=== PATIENT | female | born 1960 | race Hispanic/Latino ===

== ENCOUNTER → 2018-09-21 | Outpatient (CLI) | payer MEDICARE ==
[~2018-09-21] MED LIST: REGADENOSON 0.4 MG/5 ML SYR IV ONE
== END ==
LOC: NM 09:22
PROVIDERS: ATTEND Internal Medicine Cardiovascular Disease
DX: R07.2 Precordial pain (principal)
CPT/HCPCS: 78452; 93017; A9502; J2785

== ENCOUNTER 2019-09-27 18:35 | Inpatient (IN) | payer MEDICARE ==
[~2019-09-27] VITALS: Ht 152.4 cm; Wt 130.4 kg
[2019-09-27] MEDS: FAMOTIDINE 20 MG/2 ML VIAL IV SCH (03:00)
--- OUTSIDE RECORDS SUMMARY | 2019-09-27 18:38 | XMS REPORT | Clinical Summary ---
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 Active Miscellaneous Medical CPAP machine 1 Each 0 Supply MiscIndications: at 14 cmH2O. 5 KUN (obstructive sleep Respironics apnea) ComfortGel small-sized full face mask for sleep. Active blood glucose Use as 1 Kit 0 meterIndications: Type 2 directed.. 6 diabetes mellitus with other specified complication Active clotrimazole (LOTRIMIN) 1 Apply 1-2 30 mL 3 % external drops to 7 solutionIndications: affected Fungal toenail infection nails 2 times a day. Use a nail file to keep nails thin. Treatment may take up to 1 year. Active tiotropium (SPIRIVA WITH Inhale 1 90 capsule 3 0 HANDIHALER) 18 mcg capsule by 7 inhalation mouth daily. capsuleIndications: Chronic obstructive pulmonary disease, unspecified COPD type, Mild persistent asthma without complication Active albuterol 90 Inhale 2 20.1 g 3 mcg/actuation Puffs by 7 inhalerIndications: mouth 4 times Chronic obstructive daily as pulmonary disease, needed for unspecified COPD type, Wheezing. Mild persistent asthma without complication Active montelukast (SINGULAIR) Take 1 tablet 90 tablet 3 10 mg tabletIndications: by mouth at 7 Mild persistent asthma bedtime without complication nightly. Active blood glucose test 2 times 50 Each 3 11/29/2 01 stripsIndications: Type 2 weekly to 7 diabetes mellitus with test blood diabetic polyneuropathy, sugar. without long-term current use of insulin Active lancets 28 2 times 100 Each 1 gaugeIndications: Type 2 weekly. 7 diabetes mellitus with diabetic polyneuropathy, without long-term current use of insulin Active albuterol (PROVENTIL) 2.5 Inhale 3 mL 300 mL 4 mg /3 mL (0.083 %) by mouth 7 nebulizer every 4 hours solutionIndications: as needed for Chronic obstructive Wheezing or pulmonary disease, Shortness of unspecified COPD type Breath. Active Miscellaneous Medical Patient 1 Each 0 Supply MiscIndications: needing a 7 COPD exacerbation, Mild nebulizer due persistent asthma without to Severe complication Asthma with COPD. Active ergocalciferol (VITAMIN Take 1 12 capsule 0 D2) 50,000 unit capsule by 7 capsuleIndications: mouth weekly Vitamin D deficiency For 3 months and then buy vitamin D3: 2000 units and take 1 tablet/day. Active levothyroxine (SYNTHROID) Take 1 tablet 90 tablet 1 25 mcg tabletIndications: by mouth 7 Hypothyroidism, daily. unspecified type Active atorvastatin (LIPITOR) 40 Take 1 tablet 90 tablet 1 mg tabletIndications: by mouth at 8 Hyperlipidemia, bedtime unspecified nightly. hyperlipidemia type Active dexlansoprazole Take 1 90 capsule 0 (DEXILANT) 30 mg delayed capsule by 8 release mouth daily. capsuleIndications: Gastroesophageal reflux disease, esophagitis presence not specified Active loratadine (CLARITIN) 10 Take 1 tablet 90 tablet 1 mg tabletIndications: by mouth 8 Chronic nonseasonal daily. allergic rhinitis due to other allergen, Rhinosinusitis Active ciclesonide (ZETONNA) 37 Use 1 [place] 6.1 g 4 0 mcg/actuation nasal HFA in each 8 inhalerIndications: nostril Rhinosinusitis daily. Active benzonatate (TESSALON Take 2 90 capsule 0 04/26 PERLES) 100 mg capsules by 8 capsuleIndications: Cough mouth 3 times daily as needed for Cough. Active ketoconazole (NIZORAL) 2 Apply to 30 g 3 0 % topical affected area 8 creamIndications: Tinea 2 times daily pedis of both feet Label in Lithuanian. Active FLUoxetine (PROZAC) 20 mg Take 1 90 capsule 0 capsuleIndications: capsule by 8 Moderate episode of mouth daily. recurrent major depressive disorder Active fluticasone-salmeterol Inhale 1 Puff 180 Each 3 0 (ADVAIR DISKUS) 500-50 by mouth 2 8 mcg/dose diskus times daily. inhalerIndications: Severe persistent extrinsic asthma with status asthmaticus Active Nebulizer & Compressor 1 Device by 1 Device 0 For Neb DeviIndications: Misc.(Non-Yg 8 Moderate persistent g; Combo asthmatic bronchitis with Route) route acute exacerbation 4 times daily. Active albuterol (PROVENTIL) 2.5 Inhale 3 mL 300 mL 3 mg /3 mL (0.083 %) by mouth 8 nebulizer every 4 hours solutionIndications: as needed for Moderate persistent Wheezing or asthmatic bronchitis with Shortness of acute exacerbation Breath. Active guaiFENesin SR (MUCINEX) Take 1 tablet 30 tablet 1 600 mg extended release by mouth 2 8 tabletIndications: Cough times daily. Active gabapentin (NEURONTIN) Take 1 90 capsule 1 300 mg capsule by 8 capsuleIndications: mouth at Diabetic polyneuropathy bedtime associated with type 2 nightly. diabetes mellitus Active Miscellaneous Medical Permanent 1 Each 0 09/24 Supply MiscIndications: disabled 8 COPD exacerbation, parking Moderate persistent placard. asthma without complication Active losartan (COZAAR) 50 mg Take 1 tablet 90 tablet 0 tabletIndications: by mouth 8 Essential hypertension daily. with goal blood pressure less than 140/90 Active Miscellaneous Medical CPAP Machine, 1 Each 0 Supply MiscIndications: face Mask and 8 KUN (obstructive sleep supplies for apnea) severe KUN. Active metFORMIN (GLUCOPHAGE) Take 1 tablet 90 tablet 0 0 500 mg tabletIndications: by mouth 8 Type 2 diabetes mellitus daily (with with complication, breakfast). without long-term current use of insulin Active ammonium lactate (AL12) Apply to 222 mL 3 12 % lotionIndications: affected area 8 Xerosis cutis 2 times daily. Active Miscellaneous Medical CPAP machine 1 Each 0 Supply MiscIndications: with 8 Moderate persistent treatment asthma without settings at complication 14 cm H2O with Respironics ComfortGel small sized full face mask for sleep. Active Miscellaneous Medical Nebulizer 1 Each 0 11/23 Supply MiscIndications: machine due 8 COPD exacerbation, KUN to severe (obstructive sleep apnea) persistent Asthma with COPD. Active Problems Problem Noted Date Edentulism, complete, class I edentulism 10/11/2017 Edentulism 08/29/2017 Vitamin D deficiency 04/07/2017 Depression 04/04/2017 Right shoulder pain 03/04/2017 Diabetes mellitus without ophthalmic manifestations 06/09/2016 COPD exacerbation 12/22/2015 Hypoxia 12/22/2015 Essential hypertension with goal blood pressure less than 140/90 12/18/2015 UKN (obstructive sleep apnea) 01/22/2015 Asthma 06/27/2013 Morbid obesity 03/30/2013 Hemangioma of face 09/12/2012 DMII (diabetes mellitus, type 2) Mixed hyperlipidemia Hypothyroidism Blood in urine Anemia ESR raised Shoulder pain Encounters Care Team Description Date Type Specialty Mickey Lewis Jr., DMD Edentulism, complete, class I edentulism (Primary Dx) 11/07/2018 Office Visit Dentistry after 09/26/2018 Immunizations Name Administration Dates Next Due Albuterol 0.083% (3ml) 09/27/2013, 06/27/2013 CEFTRIAXONE 1 GRAM 06/03/2016 SOLUTION FOR INJECTION Influenza Vaccine 06/03/2016, 03/04/2015, Influenza Vaccine, 04/14/2017, 04/04/2017 (Def erred: Patient Refused) Seasonal, Injectable Ipratropium 0.02t (2.5ml) 06/27/2013 LIDOCAINE (PF) 10 MG/ML 06/03/2016 (1 %) INJECTION PPV 23 Pneumococcal 04/16/2013 Polysaccaride Pneumococcal 13-valent 2016 conj 0.5 mL injection Tdap Tetanus, diphtheria, 09/12/2012 acellular pertussis Vaccine Triamcinolone 40mg/ml Inj 06/27/2013 Family History Medical History Relation Name Comments Arthritis Mother Cancer Sister Hypertension Sister Stroke Sister Relation Name Status Comments Brother Alive Brother Alive Brother Alive Brother Alive Brother Alive Brother Alive Daughter Alive Father Maternal Grandfather Maternal Grandmother Mother Paternal Grandfather Paternal Grandmother Sister Alive Sister Alive Sister Alive Sister Alive Sister Alive Sister Sister Sister Social History Date Tobacco Use Types Packs/Day Years Used Quit: 04/14/2012 Former Smoker Cigarettes 0.5 20 Smokeless Tobacco: Former User Tobacco Cessation: Counseling Given: Yes Drinks/Week oz/Week Comments Alcohol Use 0 Standard drinks or equivalent 0.0 Occasionally Yes Food Insecurity Answer Date Recorded Within the past 12 months, you worried that your Never jamee e 11/29/2016 food would run out before you got money to buy more. Within the past 12 months, the food you bought Never true 11/29/2016 just didn't last and you didn't have mo brendan to get more. Sex Assigned at Date Recorded Not on file Industry Job Start Date Occupation Not on file Not on file Not on file Travel End Travel History Travel Start No recent travel history available. Last Filed Vital Signs Reading Time Taken Comments Vital Sign 133/70 11/07/2018 10:36 AM CDT Blood Pressure 64 11/07/2018 10:36 AM CDT Pulse - - Temperature - - Respiratory Rate - - Oxygen Saturation - - Inhaled Oxygen Concentration - - Weight - - Height - - Body Mass Index Plan of Treatment Health Maintenance Due Date Last Done Comments Colorectal Cancer Scrn 11/30/2017 11/30/2016, 04/2015 Annual (FIT/FOBT) Age 50 to 75 Breast Cancer Scrn 01/03/2018 01/03/2017, 016, 01/03/2015, (Yearly) Additional history exists DM Foot Exam (Yearly) 01/21/2018 01/21/2017, 08/0 10/2016, 09/30/2015 DM HGBA1C (Yearly) 04/06/2018 04/06/2017, 017, 05/04/2016, Additional history exists DM Retinal Exam (Yearly) 09/06/2018 09/06/2017, 0 06/09/2016, 05/04/2016, Additional history exists Cervical Cancer Scrn (3 04/27/2020 04/27/2017, (Previously Yrs) completed - External), 04/2012 Goals Goal Patient Associated Recent Progress Patient-Stat Aut hor Goal Type Problems ed? LOWER BLOOD GLUCOSE Lifestyle No Blu Arias MD Results Not on fileafter 09/26/2018 Insurance Type Payer Benefit Subscriber ID Effective Phone Address Plan / Dates Group [facility] SELF-PAY SELF-PAY xxxxxxxxx 2018- [phone] [id number] [place] [address] Advance Directives Date Inactivated Comments Code Status Date Activated 12/24/2015 12:13 PM Full Code 12/23/2015 12:02 AM
--- OUTSIDE RECORDS SUMMARY | 2019-09-27 18:38 | XMS REPORT | Continuity of Care Document ---
Author Author [facility] t Organization [facility] Address [address] [place] [address] Phone Unavailable Care Team Providers Care Maintenance Associate Name Role Phone Malvin Best MD Jeffery PCP Debbie FULLER W Mickey Attphys John VALENTIN Attphys Unavailable Payers Payer Name Policy Type Policy Number Effective Date Expiration Date S [facility] [id number] UNSCREENEDxxxxxxxx [id number] [place] [address] xxxxxxxxx 2018 00:00:00 [facility] Problems Condition Name Condition Details Condition Category Status Onset Date Resolution Date Last Treatment Date Treating Clinician Comments Source Edentulism, complete, class I edentulism Edentulism, c omplete, class I edentulism Disease Active 2017-10-11 00:00:00 [facility] Edentulism Edentulism Disease Active 2017-08-29 00:00:00 [facility] Vitamin D deficiency Vitamin D deficiency Disease Active 00:00:00 [facility] Depression Depression Disease Active 2017-04-04 00:00:00 [facility] Diabetes mellitus without ophthalmic manifestations Di abetes mellitus without ophthalmic manifestations Disease Active 2016-06-09 00:00:00 [facility] COPD exacerbation COPD exacerbation Disease Active 2015-12-22 00:00:00 [facility] Hypoxia Hypoxia Disease Active 2015-12-22 00:00:00 [facility] Essential hypertension with goal blood pressure less t breaux 140/90 Essential hypertension with goal blood pressure less than 140/90 Disease Activ e 2015-12-18 00:00:00 [facility] KUN (obstructive sleep apnea) KUN (obstructive sleep apnea) Disease Active 2015-01-22 00:00:00 [facility] Asthma Asthma Disease Active 2013-06-27 00:00:00 [facility] Morbid obesity Morbid obesity Disease Active 2013-03-30 00:00:00 [facility] Hemangioma of face Hemangioma of face Disease Active 2012-09-12 00:00:0 0 [facility] DMII (diabetes mellitus, type 2) DMII (diabetes mellitus, type 2 ) Disease Active [facility] Mixed hyperlipidemia Mixed hyperlipidemia Disease Active [facility] Hypothyroidism Hypothyroidism Disease Active [facility] Blood in urine Blood in urine Disease Active [facility] Anemia Anemia Disease Active [facility] alth ESR raised ESR raised Disease Active [facility] Shoulder pain Shoulder pain Disease Active [facility] Allergies, Adverse Reactions, Alerts Allergy Name Allergy Type Status Severity Reaction(s) Onset Date Inacti ve Date Treating Clinician Comments Source Penicillins DA Active U 2013-10-21 00:00:00 [facility] Penicillins Propensity to adverse reactions to drug Active Itching 2012-09-12 00:00:00 [facility] Family History Family Member Diagnosis Comments Start Date Stop Date Source Natural mother Arthritis [facility] Natural sister Cancer [facility] Natural sister Hypertension [facility] Natural sister Stroke [facility] Social History Social Habit Start Date Stop Date Quantity Comments Source Sex Assigned At [facility] Cigarettes smoked current (pack per day) - Reported 00:00:00 2018-11-07 00:00:00 [facility] Cigarette pack-years 2018-11-07 00:00:00 2018-11-07 00:00:00 [facility] Alcohol intake 2018-11-07 00:00:00 2018-11-07 00:00:00 [facility] History SDOH Food Worry 2016-11-29 00:00:00 2016-11-29 00:00:00 1 [facility] History SDOH Food Scarcity 2016-11-29 00:00:00 2016-11-29 00:00:00 1 [facility] Alcohol Comment 2012-09-12 00:00:00 2012-09-12 00:00:00 Occasionally [facility] History of tobacco use 2012-04-14 00:00:00 Current smoker [facility] Smoking Status Start Date Stop Date Source Former smoker 2018-11-07 00:00:00 2018-11-07 00:00:00 [facility] ealt Medications Ordered Medication Name Filled Medication Name Start Date Stop Da te Current Medication? Ordering Clinician Indication Dosage Frequency Signature (SIG) Comments Components Source [facility] 2017-12-02 00:00:00 Yes Moderate persistent asthma without complication C PAP machine with treatment settings at 14 cm H2O with Respironics ComfortGel small sized full face mask for sleep. [facility] 2017-12-02 00:00:00 Yes KUN (obstructive sleep apnea) Nebulizer machine due to severe persisten t Asthma with COPD. [facility] ammonium lactate (AL12) 12 % lotion 2017-11-30 00:00:00 Yes Xerosis cutis Q.5D Apply to affected area 2 times daily. [facility] metFORMIN (GLUCOPHAGE) 500 mg tablet 2017-11-23 00:00:00 Yes Type 2 diabetes mellitus with complication, without long-term current use of insulin 500mg QD Take 1 tablet by mouth daily (with breakfast). [facility] 2017-11-08 00:00:00 Yes KUN (obstructive sleep apnea) CPAP Machine, face Mask and supplies for damian re KUN. [facility] losartan (COZAAR) 50 mg tablet 2017-11-02 00:00:00 Yes Essential hypertension with goal blood pressure less than 140/90 50mg QD Take 1 tablet by mouth daily. [facility] 2017-10-14 00:00:00 Yes Moderate persistent asthma without complication Permanent disabled parking placard. [facility] gabapentin (NEURONTIN) 300 mg capsule 2017-09-27 00:00:00 Yes Diabetic polyneuropathy associated with type 2 diabetes mellitus 300mg Take 1 capsule by mouth at bedtime nightly. [facility] Nebulizer & Compressor For Neb Sofia 2017-08-25 00:00:00 Yes Moderate persistent asthmatic bronchitis with acute exacerbation 1{device} [address] [facility].(Non-Drug; Combo Route) route 4 times daily. [facility] albuterol (PROVENTIL) 2.5 mg /3 mL (0.083 %) nebulizer solut ion 2017-08-25 00:00:00 Yes Moderate persist ent asthmatic bronchitis with acute exacerbation 2.5mg Inhale 3 mL by mouth every 4 hours as needed for Wheezing or Shortness of Breath. [facility] guaiFENesin SR (MUCINEX) 600 mg extended release tablet 2017-08-25 00:00:00 Yes Cough 600mg Q.5D Take 1 tablet by mouth 2 times daily. [facility] fluticasone-salmeterol (ADVAIR DISKUS) 500-50 mcg/dose disku s inhaler 2017-08-15 00:00:00 Yes Severe persi stent extrinsic asthma with status asthmaticus 1{puff} Q.5D Inhale 1 Puff by mouth 2 times daily. [facility] FLUoxetine (PROZAC) 20 mg capsule 2017-08-04 00:00:00 Yes Moderate episode of recurrent major depressive disorder 20mg QD Take 1 capsule by mouth daily. [facility] ketoconazole (NIZORAL) 2 % topical cream 2017-08-02 00:00:00 Yes Tinea pedis of both feet Q.5D Apply to affected ar ea 2 times daily Label in Albanian. [facility] loratadine (CLARITIN) 10 mg tablet 2017-05-19 00:00:00 Y es Rhinosinusitis 10mg QD Take 1 tablet by mouth daily. [facility] ciclesonide (ZETONNA) 37 mcg/actuation nasal HFA inhaler 2017-05-19 00:00:00 Yes Rhinosinusitis 1{spray} QD Use 1 [place] in each nost ril daily. [facility] benzonatate (TESSALON PERLES) 100 mg capsule 2017-05-19 00:0 0:00 Yes Cough 200mg Take 2 capsules by mouth 3 times daily as neede d for Cough. [facility] atorvastatin (LIPITOR) 40 mg tablet 2017-04-28 00:00:00 Yes Hyperlipidemia, unspecified hyperlipidemia type 40mg Take 1 tablet by mouth at bedtime nightly. [facility] dexlansoprazole (DEXILANT) 30 mg delayed release capsule 2017-04-28 00:00:00 Yes Gastroesophageal reflux disease, esophagi tis presence not specified 30mg QD Take 1 capsule by mouth daily. [facility] levothyroxine (SYNTHROID) 25 mcg tablet 2017-04-14 00:00:00 Yes Hypothyroidism, unspecified type 25ug QD Take 1 tablet by mouth cecilia ames. [facility] ergocalciferol (VITAMIN D2) 50,000 unit capsule 2017-04-07 0 0:00:00 Yes Vitamin D deficiency [id number] Take 1 capsule by m outh weekly For 3 months and then buy vitamin D3: 2000 units and take 1 tablet/day. [facility] Miscellaneous Medical Supply Misc 2016-11-30 00:00:00 Yes Mild persistent asthma without complication Patient need ing a nebulizer due to Severe Asthma with COPD. [facility] clotrimazole (LOTRIMIN) 1 % external solution 2016-11-29 00: 00:00 Yes Fungal toenail infection Apply 1-2 drops to affected nails 2 times a day. Use a nail file to keep nails thin. Treatment may take up to 1 year. [facility] tiotropium (SPIRIVA WITH HANDIHALER) 18 mcg inhalation capsu le 2016-11-29 00:00:00 Yes Mild persistent asthma without complicat ion 1{capsule} QD Inhale 1 capsule by mouth daily. [facility] albuterol 90 mcg/actuation inhaler 2016-11-29 00:00:00 Yes Mild persistent asthma without complication 2{puff} Inhale 2 Puf fs by mouth 4 times daily as needed for Wheezing. [facility] montelukast (SINGULAIR) 10 mg tablet 2016-11-29 00:00:00 Yes Mild persistent asthma without complication 10mg T jorge alberto 1 tablet by mouth at bedtime nightly. [facility] blood glucose test strips 2016-11-29 00:00:00 Yes Type 2 diabetes mellitus with diabetic polyneuropathy, without long-term current use of insulin 2 times weekly to test blood sugar. [facility] lancets 28 gauge 2016-11-29 00:00:00 Yes Type 2 diabetes mellitus with diabetic polyneuropathy, without long-term current use of insulin 2 times weekly. [facility] albuterol (PROVENTIL) 2.5 mg /3 mL (0.083 %) nebulizer solut ion 2016-11-29 00:00:00 Yes Chronic obstructive pulmonar y disease, unspecified COPD type 2.5mg Inhale 3 mL by mouth every 4 hours as needed for Wheezing or Shortness of Breath. [facility] blood glucose meter 2015-11-13 00:00:00 Yes Type 2 diabetes mellitus with other specified complication Use as directed.. [facility] Miscellaneous Medical Supply Mis 2015-03-04 00:00:00 Yes KUN (obstructive sleep apnea) CPAP machine at 14 c mH2O.Respironics ComfortGel small-sized full face mask for sleep. [facility] Nebulizer & Compressor For Neb Sofia 2013-09-27 00:00:00 Yes COPD (chronic obstructive pulmonary disease) by [facility].(Non-Drug; Combo Ro will) route. [facility] Immunizations Ordered Immunization Name Filled Immunization Name Date Status Comments Source Influenza Vaccine, Seasonal, Injectable 2017-04-14 00:00:0 0 Completed [facility] Influenza Vaccine 2016-06-03 00:00:00 Completed [facility] CEFTRIAXONE 1 GRAM SOLUTION FOR INJECTION 2016-06-03 00:00 :00 Completed [facility] LIDOCAINE (PF) 10 MG/ML (1 %) INJECTION 2016-06-03 00:00:0 0 Completed [facility] Pneumococcal 13-valent conj 0.5 mL injection 2016 00 :00:00 Completed [facility] Influenza Vaccine 2015-03-04 00:00:00 Completed [facility] Albuterol 0.083% (3ml) 2013-09-27 00:00:00 Completed [facility] Albuterol 0.083% (3ml) 2013-06-27 00:00:00 Completed [facility] Triamcinolone 40mg/ml Inj 2013-06-27 00:00:00 Completed [facility] Ipratropium 0.02t (2.5ml) 2013-06-27 00:00:00 Completed [facility] Influenza Vaccine 2013-04-16 00:00:00 Completed [facility] PPV 23 Pneumococcal Polysaccaride 2013-04-16 00:00:00 Comp leted [facility] Tdap Tetanus, diphtheria, acellular pertussis Vaccine 2012-09-12 00:00:00 [facility] Vital Signs Vital Name Observation Time Observation Value Comments Source Systolic blood pressure 2018-11-07 10:36:00 133 mm[Hg] [facility] Diastolic blood pressure 2018-11-07 10:36:00 70 mm[Hg] [facility] Heart rate 2018-11-07 10:36:00 64 /min [facility] ealt Procedures This patient has no known procedures. Plan of Care Planned Activity Planned Date Details Comments Source Future Scheduled Test 2020-04-27 00:00:00 Cervical Cancer Sc rn (3 Yrs) [code = Cervical Cancer Scrn (3 Yrs)] [facility] Scheduled Test 2018-09-06 00:00:00 DM Retinal Exam (Y early) [code = DM Retinal Exam (Yearly)] [facility] Scheduled Test 2018-04-06 00:00:00 DM HGBA1C (Yearly) [code = DM HGBA1C (Yearly)] [facility] Scheduled Test 2018-01-21 00:00:00 DM Foot Exam (Year ly) [code = DM Foot Exam (Yearly)] [facility] Scheduled Test 2018-01-03 00:00:00 Breast Cancer Scrn (Yearly) [code = Breast Cancer Scrn (Yearly)] [facility] Scheduled Test 2017-11-30 00:00:00 Colorectal Cancer Scrn Annual (FIT/FOBT) Age 50 to 75 [code = Colorectal Cancer Scrn Annual (FIT/FOBT) Age 50 to 75] [facility] Encounters Start Date/Time End Date/Time Encounter Type Admission Type [facility] Care Department Encounter ID Source 2018-11-07 10:36:14 2018-11-07 10:36:14 Outpatient [facility] [id number] [facility] 2018-04-11 00:00:00 2018-04-11 00:00:00 Outpatient [facility] [id number] [facility] 2018-03-10 00:00:00 2018-03-10 00:00:00 Outpatient [facility] [id number] [facility] 2018-02-27 00:00:00 2018-02-27 00:00:00 Outpatient [facility] [id number] [facility] 2018-02-21 00:00:00 2018-02-21 00:00:00 Outpatient [facility] [id number] [facility] 2018-02-14 10:42:46 2018-02-14 10:42:46 Outpatient [facility] [id number] [facility] 2018-01-31 09:51:06 2018-01-31 09:51:06 Outpatient [facility] [id number] [facility] 2018-01-17 00:00:00 2018-01-17 00:00:00 Outpatient [facility] [id number] [facility] 2017-12-20 09:56:58 2017-12-20 09:56:58 Outpatient [facility] [id number] [facility] 2017-12-06 00:00:00 2017-12-06 00:00:00 Outpatient [facility] [id number] [facility] 2017-12-02 00:00:00 2017-12-02 00:00:00 Outpatient [facility] [id number] [facility] 2017-12-02 00:00:00 2017-12-02 00:00:00 Outpatient [facility] [id number] [facility] 2017-12-02 00:00:00 2017-12-02 00:00:00 Outpatient [facility] [id number] [facility] 2017-12-01 00:00:00 2017-12-01 00:00:00 Outpatient [facility] [id number] [facility] 2017-12-01 00:00:00 2017-12-01 00:00:00 Outpatient [facility] [id number] [facility] 2017-11-24 00:00:00 2017-11-24 00:00:00 Outpatient [facility] [id number] [facility] 2017-11-18 00:00:00 2017-11-18 00:00:00 Outpatient [facility] [id number] [facility] 2017-11-15 09:58:33 2017-11-15 09:58:33 Outpatient [facility] [id number] [facility] 2017-11-04 00:00:00 2017-11-04 00:00:00 Outpatient [facility] [id number] [facility] 2017-10-11 09:05:02 2017-10-11 09:05:02 Outpatient [facility] [id number] [facility] 2017-09-06 14:03:29 2017-09-06 14:03:29 Outpatient [facility] [id number] [facility] 2017-08-29 11:18:50 2017-08-29 11:18:50 Outpatient [facility] [id number] [facility] 2017-08-25 15:02:04 2017-08-25 15:02:04 Outpatient [facility] [id number] [facility] 2017-05-19 07:52:20 2017-05-19 07:52:20 Outpatient [facility] [id number] [facility] 2017-05-19 00:00:00 2017-05-19 00:00:00 Outpatient [facility] [id number] [facility] 2017-05-13 00:00:00 2017-05-13 00:00:00 Outpatient [facility] [id number] [facility] 2017-04-28 12:57:57 2017-04-28 12:57:57 Outpatient [facility] [id number] [facility] 2017-04-27 10:37:24 2017-04-27 10:37:24 Outpatient [facility] [id number] [facility] 2017-04-20 08:38:35 2017-04-20 08:38:35 Outpatient [facility] [id number] [facility] 2017-04-14 15:08:02 2017-04-14 15:08:02 Outpatient [facility] [id number] [facility] 2017-04-11 00:00:00 2017-04-11 00:00:00 Outpatient [facility] [id number] [facility] 2017-04-08 16:05:35 2017-04-08 16:05:35 Outpatient [facility] [id number] [facility] 2017-04-06 08:09:57 2017-04-06 08:09:57 Outpatient [facility] [id number] [facility] 2017-04-04 14:16:41 2017-04-04 14:16:41 Outpatient [facility] [id number] [facility] 2017-04-04 13:41:41 2017-04-04 13:41:41 Outpatient [facility] [id number] [facility] 2017-04-04 00:00:00 2017-04-04 00:00:00 Outpatient [facility] [id number] [facility] 2017-03-24 14:46:30 2017-03-24 14:46:30 Outpatient [facility] [id number] [facility] 2017-03-09 00:00:00 2017-03-09 00:00:00 Outpatient [facility] [id number] [facility] 2017-03-04 08:10:56 2017-03-04 08:10:56 Outpatient [facility] [id number] [facility] 2017-01-21 11:30:12 2017-01-21 11:30:12 Outpatient [facility] [id number] [facility] 2017-01-03 10:47:30 2017-01-03 10:47:30 Outpatient [facility] [id number] [facility] 2016-12-22 00:00:00 2016-12-22 00:00:00 Outpatient [facility] [id number] [facility] 2016-12-20 00:00:00 2016-12-20 00:00:00 Outpatient [facility] [id number] [facility] 2016-11-30 16:41:07 2016-11-30 16:41:07 Outpatient [facility] [id number] [facility] 2016-11-30 10:39:01 2016-11-30 10:39:01 Outpatient [facility] [id number] [facility] 2016-11-30 00:00:00 2016-11-30 00:00:00 Outpatient [facility] [id number] [facility] 2016-11-29 08:15:21 2016-11-29 08:15:21 Outpatient [facility] [id number] [facility] 2016-10-11 00:00:00 2016-10-11 00:00:00 Outpatient [facility] [id number] [facility] 2016-08-24 13:07:04 2016-08-24 13:07:04 Outpatient [facility] [id number] [facility] 2016-08-19 08:19:08 2016-08-19 08:19:08 Outpatient [facility] [id number] [facility] 2016-08-18 15:30:30 2016-08-18 15:30:30 Outpatient [facility] [id number] [facility] 2016-07-22 13:20:48 2016-07-22 13:20:48 Outpatient [facility] [id number] [facility] 2016-07-13 14:34:57 2016-07-13 14:34:57 Outpatient [facility] [id number] [facility] 2016-06-09 15:07:42 2016-06-09 15:07:42 Outpatient [facility] [id number] [facility] 2016-06-03 08:14:20 2016-06-03 08:14:20 Outpatient [facility] [id number] [facility] 2016-05-04 09:34:48 2016-05-04 09:34:48 Outpatient [facility] [id number] [facility] 2016-05-04 09:27:03 2016-05-04 09:27:03 Outpatient [facility] [id number] [facility] 2016-05-04 08:09:59 2016-05-04 08:09:59 Outpatient [facility] [id number] [facility] 2015-12-23 11:36:59 2015-12-23 11:36:59 Outpatient [facility] [id number] [facility] 2015-12-22 18:47:43 2015-12-22 18:47:43 Emergency [facility] [id number] [facility] 2015-12-22 17:53:14 2015-12-22 17:53:14 Outpatient [facility] [id number] [facility] Results Test Description Test Time Test Comments Results Result Comments Source SCR MAMM BILATERAL JIM CAD DIGITAL 2019-05-25 09:18:21 - SCR MAMM BILATERAL JIM CAD DIGITALBILATERAL DIGITAL SCREENING MAMMOGRAM 3D/2D WITH CAD: 05/24/2019CLINICAL: Asymptomatic. Digital breast tomosynthesis was performed in addition to routine CC and MLO views. Current mammographic images were evaluated by either a [employer] M-Vu or a [employer] ImageMaiyetcker CAD (computer aided detection system). Comparison is made to exams dated 01/28/2018 mammogram - [facility]-, 01/03/2017 mammogram, and 12/10/2015 mammogram - [facility]. There are scattered fibroglandular tissues in both breasts. There are benign calcifications in both breasts. No suspicious mass, architectural distortion, malignant type calcification, or lymph node abnormality detected. Breast architecture is stable compared to prior exams.IMPRESSION: BENIGNThere is no mammographic evidence of malignancy. Resume annual screening mammography in one year. Celestine Chacon M.D. ss/penrad:05/25/2019 09:18:21 Licensed Esthetician: Josselyn Osborn , [facility]-letter sent: BIRADS 1-2 Normal Mammogram BI-RADS: 2 Benign - CT CHEST W/O CONTRAST 2018-10-07 08:08:00 Na me: PAPA LAFLEUR [facility] : 1960 Age/S: 58 / F [address] [facility] Unit #: [id number] Loc: [place] [address] Phys: Shelia Berry MD Acct: [id number] Dis Date: Status: REG CLI PHONE #: [phone] Exam Date: 10/07/2018 08 FAX #: [phone] Reason: OTHER FORMS OF DYSPNEA EXAMS: CPT CODE: [id number] CT CHEST W/O CONTRAST [id number] EXAM: CT of the chest without contrast; INFORMATION: Dyspnea; TECHNIQUE AND FINDINGS: CT dose reduction protocol; 5 mm cuts through the chest without contrast. Lung windows show no parenchymal abnormalities. Pleural effusions, no pneumothorax. Calcifications of the thoracic aorta and the left coronary artery as well as of supraaortic vessels; otherwise, unremarkable cardiomediastinal silhouette; no adenopathy. Scans through the upper ab domen show an enlarged liver with decreased parenchymal attenuation. IMPRESSION: 1. No evidence of active cardiopulmonary disease. 2. Hepatomegaly and diffuse fatty infiltration of the liver. at 0808 Reported and signed by: Dennis Lucero M.D. CC: Shelia Berry MD; Mohsen Cueto MD Technologist:Josselyn Sim RT(R),CT CTDI: DLP: Trnscb Date/Time: 10/07/2018 (807) PeggyGRW Orig Print D/T: S: 10/07/2018 (810) PAGE 1 Signed Report Stress Test - Treadmill ONLY 2018-09-26 10:42:00 [place] [address] Patient Name : PAPA LAFLEUR MR #: [id number] : 1960 Age/Sex: 58/F Adm Physician : BRISSA VALENTIN DO Admit Date : 09/21/18 Location : [place] Room/Bed : REPORT: Myoview Stress Test DATE OF STUDY: 09/21/2018 09:34:00 Stress Test - Treadmill ONLY STRESS SUMMARY: The patient received regadenoson under the usual protocol. Baseline vitals showed heart rate of 63 and blood pressure of 152/75. At peak stress, heart rate was 82 with a blood pressure of 134/79. The patient elicited no cardiac symptoms throughout the stress protocol. ELECTROCARDIOGRAPHIC STRESS SUMMARY: Baseline 12-lead electrocardiogram showed normal sinus rhythm. There are no ST changes or arrhythmias throughout the stress protocol. MYOCARDIAL PERFUSION IMAGING: The images reveal a small mild fixed anterior perfusion defect. Gated images revealed a left ventricular ejection fraction of 68%. CONCLUSIONS: 1. Normal clinical, hemodynamic, and electrocardiographic stress test. 2. Normal myocardial perfusion imaging showing a small mild anterior attenuation artifact. 3. Normal left ventricular function with an estimated ejection fraction of 68%. DO PHAN Watt/CHAN /[id number] Signature Date Dictated By: BRISSA VALENTIN DO Transcribed By: CHAN on 09/26/18 <Electronically signed by BRISSA VALENTIN DO><<Signature on File>>10/13/18 1523 COPY TO:
[2019-09-27 19:23] LABS: BASOPHILS # (AUTO) 0.1 (0.0-0.1); BASOPHILS % 0.4 % (0.0-1.0); EOSINOPHILS # (AUTO) 0.4 (0.0-0.4); EOSINOPHILS % 3.2 % (0.0-6.0); HEMATOCRIT 24.1 % (34.2-44.1); LYMPHOCYTES # (AUTO) 1.6 (1.0-3.2); LYMPHOCYTES % 13.8 % (18.0-39.1); MEAN CORPUSCULAR VOLUME 96.4 fL (81-99); MONOCYTES # (AUTO) 0.7 (0.2-0.8); MONOCYTES % 6.2 % (4.4-11.3); NEUTROPHILS # (AUTO) 8.5 (2.1-6.9); NEUTROPHILS % 71.8 % (38.7-80.0); PLATELET COUNT 429 x10e3/uL (140-360); RED CELL DISTRIBUTION WIDTH 17.2 % (11.7-14.4)
[2019-09-27 19:37] LABS: ALANINE AMINOTRANSFERASE 23 IU/L (0-55); ALBUMIN 2.3 g/dL (3.5-5.0); ALBUMIN/GLOBULIN RATIO 0.5 (0.8-2.0); ALKALINE PHOSPHATASE 98 IU/L (40-150); ANION GAP 12.1 mmol/L (8-16); BLOOD UREA NITROGEN 10 mg/dL (7-26); BUN/CREATININE RATIO 14 (6-25); CALCIUM 8.5 mg/dL (8.4-10.2); CARBON DIOXIDE 25 mmol/L (22-29); CHLORIDE 107 mmol/L (98-107); CREATINE KINASE 89 IU/L (29-168); CREATININE, SERUM 0.69 mg/dL (0.57-1.11); EST GLOMERULAR FILTRATION RATE > 60 ML/MIN (60-); GLUCOSE 152 mg/dL (74-118); POTASSIUM 4.1 mmol/L (3.5-5.1); SODIUM 140 mmol/L (136-145)
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
--- NOTE | 2019-09-27 19:46 | Diagnostic Imaging Report ---
EXAMINATION: CHEST SINGLE (PORTABLE) INDICATION: Chest pain shortness of breath. COMPARISON: None FINDINGS: TUBES and LINES: None. LUNGS: Lungs are moderately inflated. There is mild prominence of the central pulmonary vasculature, consistent with pulmonary venous congestion. PLEURA: Bilateral small pleural effusions. No pneumothorax. HEART AND MEDIASTINUM: Cardiac size is mildly to moderately enlarged. BONES AND SOFT TISSUES: No acute osseous lesion. Mid to lower thoracic fusion with transpedicular screws system. UPPER ABDOMEN: No free air under the diaphragm. IMPRESSION: Bilateral pulmonary venous congestion. Bilateral small pleural effusions. Signed by: Dr. Will Rabago M.D. on 09/27/2019 7:43 PM
[2019-09-27] MEDS ORDERED: SODIUM CHLORIDE 0.9% 50ML 50 ML ONE (20:42)
[2019-09-27] MEDS ORDERED: IOPAMIDOL 370 MG/ML 200 ML INFUS..BTL INJ ONE (20:43)
[2019-09-27] MEDS ORDERED: MORPHINE SULFATE 2 MG/ML SYR 1ML IV STA (20:48)
[2019-09-27] MEDS ORDERED: ONDANSETRON HCL INJ 2MG/ML 2ML 2 MG/ML VIAL IV STA (20:48)
[2019-09-27] MEDS ORDERED: ACETAMINOPHEN 325 MG TAB PO ONE (21:45)
--- NOTE | 2019-09-27 22:38 | Diagnostic Imaging Report ---
CT chest pulmonary embolism protocol CPT code: 34190 INDICATION: Shortness of breath ^pe protocol ^[id number] ^2020 ^Y TECHNIQUE: Thin collimation axial images obtained through the level of the pulmonary arteries with additional imaging through the chest following the uneventful administration of 100 cc of low osmolar, nonionic intravenous contrast. Images reconstructed into coronal and sagittal MIPs for complete evaluation of the tortuous and overlapping pulmonary vascular structures and to reduce patient radiation dose. RADIATION DOSE: Total DLP: 595.79 mGy*cm Estimated effective dose: (DLP x 0.015 x size factor) mSv CTDIvol has been reviewed. It is below the limits set by the Radiation Protocol Committee (RPC). Dose reduction techniques used: Automated exposure control, adjustment of the mAs and/or kVp according to patient size, standardized low-dose protocol, and/or iterative reconstruction technique. COMPARISON: Chest x-ray 1925 hours. FINDINGS: Pulmonary artery: Small central, nonocclusive and branching filling defect in the upper lobe branch of the left pulmonary artery on axial images has no correlate in the other orthogonal planes and may represent volume averaging. No filling defects in the right pulmonary artery or pulmonary trunk. Main pulmonary artery measures 2.8 cm Aorta: The thoracic aorta is not aneurysmal. No evidence for dissection. Lymph nodes: No enlarged axillary, supraclavicular, mediastinal, or hilar lymph nodes. Thyroid: Visualized portions are normal. Mediastinum: The heart is enlarged with a small circumferential pericardial effusion. The esophagus is collapsed. Lungs/Pleura: Right Lung: Small posterior layering pleural effusion with associated atelectasis of the upper and lower lobes. Small focus of ground left attenuation in the inferior middle lobe may represent contusion Left Lung: Posterior layering pleural effusion measures 4 cm with near complete atelectasis of the lower lobe. Small amount of fluid in the posterolateral upper chest. Airways: Mild tracheobronchomalacia. Abdomen: No evidence of contusion or laceration. No mass or lymphadenopathy. Bones/Soft tissues: Multiple acute bilateral rib fractures. Pedicle screws and vertical stabilizing bars from T9-T12. No hardware failure. No compression fractures. Multiple skin edmundo in the posterior chest at the level of the fusion hardware. Subcutaneous emphysema in the right chest. Two soft tissue nodules in the right anterior abdominal wall measure 2.3 x 3.9 cm and 1.6 x 1.8 cm. IMPRESSION: 1. A nonocclusive branching filling defect potentially in the upper lobe branch of the left pulmonary artery appears to represent volume averaging in the other orthogonal planes. No findings to suggest pulmonary embolus elsewhere. 2. Multiple bilateral rib fractures, bilateral pleural effusions (left larger than right) and bilateral atelectasis. There is suggestion of a contusion in the right middle lobe. No pneumothorax. 3. Cardiomegaly and small pericardial effusion. 4. Subcutaneous emphysema in the right chest. Soft tissue nodules in the anterior right abdominal wall may be due to injections. 5. Postoperative changes of the spine without associated fracture or hardware failure. Signed by: Dr. Ga Gil MD on 09/27/2019 10:35 PM
--- OUTSIDE RECORDS SUMMARY | 2019-09-27 23:28 | XMS REPORT | Clinical Summary ---
Author Author [facility] Organization [facility] Address Unknown Phone Unavailable Care Team Providers Care Event Sales Manager Name Role Phone Jeffery Best MD PCP [...] Rhinosinusitis Active ciclesonide (ZETONNA) 37 Use 1 [place] 6.1 g 4 0 mcg/actuation nasal HFA [...] daily pedis of both feet Label in [place]. Active FLUoxetine (PROZAC) 20 mg Take 1 [...] goal blood pressure less than 140/90 12/18/2015 KUN (obstructive sleep apnea) 01/22/2015 Asthma 06/27/2013 Morbid [...] Effective Phone Address Plan / Dates Group [facility] SELF-PAY SELF-PAY xxxxxxxxx 2018- [phone] [id number] [place] [address] Advance Directives Date Inactivated Comments Code Status Date Activated 12/24/2015 12:13 PM Full Code 12/23/2015 12:02 AM
--- OUTSIDE RECORDS SUMMARY | 2019-09-27 23:28 | XMS REPORT | Continuity of Care Document ---
Author Author [facility] t Organization [facility] Address 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 Name Role Phone Malvin Best MD PCP [place] FREY Attphys Unavailable Debbietrinity FULLER W Mickey Attphys John VALENTIN Attphys Unavailable Payers Payer Name Policy Type Policy Number Effective Date Expiration Date [facility] [id number] UNSCREENEDxxxxxxxx [id number] [place] [address] xxxxxxxxx 2018 00:00:00 [facility] Problems Condition Name Condition Details Condition Category Status Onset Date Resolution Date Last Treatment Date Treating Clinician Comments Source Edentulism, complete, class I edentulism Edentulism, c omplete, class I edentulism Disease Active 2017-10-11 00:00:00 [facility] Edentulism Edentulism Disease Active 2017-08-29 00:00:00 [facility] Vitamin D deficiency Vitamin D deficiency Disease Active 00:00:00 [facility] Depression Depression Disease Active 2017-04-04 00:00:00 [facility] Diabetes mellitus without ophthalmic manifestations Di abetes mellitus without ophthalmic manifestations Disease Active 2016-06-09 00:00:00 [facility] COPD exacerbation COPD exacerbation Disease Active 2015-12-22 00:00:00 [facility] Hypoxia Hypoxia Disease Active 2015-12-22 00:00:00 [facility] Essential hypertension with goal blood pressure less t breaux 140/90 Essential hypertension with goal blood pressure less than 140/90 Disease Activ e 2015-12-18 00:00:00 [facility] KUN (obstructive sleep apnea) KUN (obstructive sleep apnea) Disease Active 2015-01-22 00:00:00 [facility]alt Asthma Asthma Disease Active 2013-06-27 00:00:00 [facility] Morbid obesity Morbid obesity Disease Active 2013-03-30 00:00:00 [facility] Hemangioma of face Hemangioma of face Disease Active 2012-09-12 00:00:0 0 [facility] DMII (diabetes mellitus, type 2) DMII (diabetes mellitus, type 2 ) Disease Active [facility] Mixed hyperlipidemia Mixed hyperlipidemia Disease Active [facility] Hypothyroidism Hypothyroidism Disease Active [facility] Blood in urine Blood in urine Disease Active [facility] Anemia Anemia Disease Active [facility] alth ESR raised ESR raised Disease Active [facility] Shoulder pain Shoulder pain Disease Active [facility] Allergies, Adverse Reactions, Alerts Allergy Name Allergy Type Status Severity Reaction(s) Onset Date Inacti ve Date Treating Clinician Comments Source Penicillins DA Active U 2013-10-21 00:00:00 [facility] Penicillins Propensity to adverse reactions to drug Active Itching 2012-09-12 00:00:00 [facility] Family History Family Member Diagnosis Comments Start Date Stop Date Source Natural mother Arthritis [facility] Natural sister Cancer [facility] Natural sister Hypertension [facility] Natural sister Stroke [facility] Social History Social Habit Start Date Stop Date Quantity Comments Source Sex Assigned At [facility] Cigarettes smoked current (pack per day) - Reported 00:00:00 2018-11-07 00:00:00 [facility] Cigarette pack-years 2018-11-07 00:00:00 2018-11-07 00:00:00 [facility] Alcohol intake 2018-11-07 00:00:00 2018-11-07 00:00:00 [facility] History SDOH Food Worry 2016-11-29 00:00:00 2016-11-29 00:00:00 1 [facility] History SDOH Food Scarcity 2016-11-29 00:00:00 2016-11-29 00:00:00 1 [facility] Alcohol Comment 2012-09-12 00:00:00 2012-09-12 00:00:00 Occasionally [facility] History of tobacco use 2012-04-14 00:00:00 Current smoker [facility] Smoking Status Start Date Stop Date Source Former smoker 2018-11-07 00:00:00 2018-11-07 00:00:00 [facility] Medications Ordered Medication Name Filled Medication Name Start Date Stop Da te Current Medication? Ordering Clinician Indication Dosage Frequency Signature (SIG) Comments Components Source [facility] 2017-12-02 00:00:00 Yes Moderate persistent asthma without complication C PAP machine with treatment settings at 14 cm H2O with Respironics ComfortGel small sized full face mask for sleep. [facility] Medical Supply [facility] 2017-12-02 00:00:00 Yes KUN (obstructive sleep apnea) Nebulizer machine due to severe persisten t Asthma with COPD. [facility] ammonium lactate (AL12) 12 % lotion 2017-11-30 00:00:00 Yes Xerosis cutis Q.5D Apply to affected area 2 times daily. [facility] metFORMIN (GLUCOPHAGE) 500 mg tablet 2017-11-23 00:00:00 Yes Type 2 diabetes mellitus with complication, without long-term current use of insulin 500mg QD Take 1 tablet by mouth daily (with breakfast). [facility] Medical Supply [facility] 2017-11-08 00:00:00 Yes KUN (obstructive sleep apnea) CPAP Machine, face Mask and supplies for damian re KUN. [facility] losartan (COZAAR) 50 mg tablet 2017-11-02 00:00:00 Yes Essential hypertension with goal blood pressure less than 140/90 50mg QD Take 1 tablet by mouth daily. [facility] Medical Supply [facility] 2017-10-14 00:00:00 Yes Moderate persistent asthma without complication Permanent disabled parking placard. [facility] gabapentin (NEURONTIN) 300 mg capsule 2017-09-27 00:00:00 Yes Diabetic polyneuropathy associated with type 2 diabetes mellitus 300mg Take 1 capsule by mouth at bedtime nightly. [facility] Nebulizer & Compressor For Neb Sofia 2017-08-25 00:00:00 Yes Moderate persistent asthmatic bronchitis with acute exacerbation 1{device} 1 Device by [facility].(Non-Drug; Combo Route) route 4 times daily. [facility] albuterol (PROVENTIL) 2.5 mg /3 mL (0.083 %) nebulizer solut ion 2017-08-25 00:00:00 Yes Moderate persist ent asthmatic bronchitis with acute exacerbation 2.5mg Inhale 3 mL by mouth every 4 hours as needed for Wheezing or Shortness of Breath. [facility] guaiFENesin SR (MUCINEX) 600 mg extended release tablet 2017-08-25 00:00:00 Yes Cough 600mg Q.5D Take 1 tablet by mouth 2 times daily. [facility] fluticasone-salmeterol (ADVAIR DISKUS) 500-50 mcg/dose disku s inhaler 2017-08-15 00:00:00 Yes Severe persi stent extrinsic asthma with status asthmaticus 1{puff} Q.5D Inhale 1 Puff by mouth 2 times daily. [facility] FLUoxetine (PROZAC) 20 mg capsule 2017-08-04 00:00:00 Yes Moderate episode of recurrent major depressive disorder 20mg QD Take 1 capsule by mouth daily. [facility] ketoconazole (NIZORAL) 2 % topical cream 2017-08-02 00:00:00 Yes Tinea pedis of both feet Q.5D Apply to affected ar ea 2 times daily Label in Bengali. [facility] loratadine (CLARITIN) 10 mg tablet 2017-05-19 00:00:00 Y es Rhinosinusitis 10mg QD Take 1 tablet by mouth daily. [facility] ciclesonide (ZETONNA) 37 mcg/actuation nasal HFA inhaler 2017-05-19 00:00:00 Yes Rhinosinusitis 1{spray} QD Use 1 [place] in each nost ril daily. [facility] benzonatate (TESSALON PERLES) 100 mg capsule 2017-05-19 00:0 0:00 Yes Cough 200mg Take 2 capsules by mouth 3 times daily as neede d for Cough. [facility] atorvastatin (LIPITOR) 40 mg tablet 2017-04-28 00:00:00 Yes Hyperlipidemia, unspecified hyperlipidemia type 40mg Take 1 tablet by mouth at bedtime nightly. [facility] dexlansoprazole (DEXILANT) 30 mg delayed release capsule 2017-04-28 00:00:00 Yes Gastroesophageal reflux disease, esophagi tis presence not specified 30mg QD Take 1 capsule by mouth daily. [facility] levothyroxine (SYNTHROID) 25 mcg tablet 2017-04-14 00:00:00 Yes Hypothyroidism, unspecified type 25ug QD Take 1 tablet by mouth da hui. [facility] ergocalciferol (VITAMIN D2) 50,000 unit capsule 2017-04-07 0 0:00:00 Yes Vitamin D deficiency 33590M Take 1 capsule by m out weekly For 3 months and then buy vitamin D3: 2000 units and take 1 tablet/day. [facility] Miscellaneous Medical Supply Misc 2016-11-30 00:00:00 Yes Mild persistent asthma without complication Patient need ing a nebulizer due to Severe Asthma with COPD. [facility] clotrimazole (LOTRIMIN) 1 % external solution 2016-11-29 00: 00:00 Yes Fungal toenail infection Apply 1-2 drops to affected nails 2 times a day. Use a nail file to keep nails thin. Treatment may take up to 1 year. [facility] tiotropium (SPIRIVA WITH HANDIHALER) 18 mcg inhalation capsu le 2016-11-29 00:00:00 Yes Mild persistent asthma without complicat ion 1{capsule} QD Inhale 1 capsule by mouth daily. [facility] albuterol 90 mcg/actuation inhaler 2016-11-29 00:00:00 Yes Mild persistent asthma without complication 2{puff} Inhale 2 Puf fs by mouth 4 times daily as needed for Wheezing. [facility] montelukast (SINGULAIR) 10 mg tablet 2016-11-29 00:00:00 Yes Mild persistent asthma without complication 10mg T jorge alberto 1 tablet by mouth at bedtime nightly. [facility] blood glucose test strips 2016-11-29 00:00:00 Yes Type 2 diabetes mellitus with diabetic polyneuropathy, without long-term current use of insulin 2 times weekly to test blood sugar. [facility] lancets 28 gauge 2016-11-29 00:00:00 Yes Type 2 diabetes mellitus with diabetic polyneuropathy, without long-term current use of insulin 2 times weekly. [facility] albuterol (PROVENTIL) 2.5 mg /3 mL (0.083 %) nebulizer solut ion 2016-11-29 00:00:00 Yes Chronic obstructive pulmonar y disease, unspecified COPD type 2.5mg Inhale 3 mL by mouth every 4 hours as needed for Wheezing or Shortness of Breath. [facility] blood glucose meter 2015-11-13 00:00:00 Yes Type 2 diabetes mellitus with other specified complication Use as directed.. [facility] Miscellaneous Medical Supply [facility] 2015-03-04 00:00:00 Yes KUN (obstructive sleep apnea) CPAP machine at 14 c mH2O.Respironics ComfortGel small-sized full face mask for sleep. [facility] Nebulizer & Compressor For Neb Sofia 2013-09-27 00:00:00 Yes COPD (chronic obstructive pulmonary disease) by [facility].(Non-Drug; Combo Ro mechoopda) route. [facility] Immunizations Ordered Immunization Name Filled Immunization Name Date Status Comments Source Influenza Vaccine, Seasonal, Injectable 2017-04-14 00:00:0 0 Completed [facility] Influenza Vaccine 2016-06-03 00:00:00 Completed [facility] CEFTRIAXONE 1 GRAM SOLUTION FOR INJECTION 2016-06-03 00:00 :00 Completed [facility] LIDOCAINE (PF) 10 MG/ML (1 %) INJECTION 2016-06-03 00:00:0 0 Completed [facility] Pneumococcal 13-valent conj 0.5 mL injection 2016 00 :00:00 Completed [facility] Influenza Vaccine 2015-03-04 00:00:00 Completed [facility] Albuterol 0.083% (3ml) 2013-09-27 00:00:00 Completed [facility] Albuterol 0.083% (3ml) 2013-06-27 00:00:00 Completed [facility] Triamcinolone 40mg/ml Inj 2013-06-27 00:00:00 Completed [facility] Ipratropium 0.02t (2.5ml) 2013-06-27 00:00:00 Completed [facility] Influenza Vaccine 2013-04-16 00:00:00 Completed [facility] PPV 23 Pneumococcal Polysaccaride 2013-04-16 00:00:00 Comp leted [facility] Tdap Tetanus, diphtheria, acellular pertussis Vaccine 2012-09-12 00:00:00 [facility] Vital Signs Vital Name Observation Time Observation Value Comments Source Systolic blood pressure 2018-11-07 10:36:00 133 mm[Hg] [facility] Diastolic blood pressure 2018-11-07 10:36:00 70 mm[Hg] [facility] Heart rate 2018-11-07 10:36:00 64 /min [facility] This patient has no known procedures. Plan of Care Planned Activity Planned Date Details Comments Source Future Scheduled Test 2020-04-27 00:00:00 Cervical Cancer Sc rn (3 Yrs) [code = Cervical Cancer Scrn (3 Yrs)] [facility] Scheduled Test 2018-09-06 00:00:00 DM Retinal Exam (Y early) [code = DM Retinal Exam (Yearly)] [facility] Scheduled Test 2018-04-06 00:00:00 DM HGBA1C (Yearly) [code = DM HGBA1C (Yearly)] [facility] Scheduled Test 2018-01-21 00:00:00 DM Foot Exam (Year ly) [code = DM Foot Exam (Yearly)] [facility] Scheduled Test 2018-01-03 00:00:00 Breast Cancer Scrn (Yearly) [code = Breast Cancer Scrn (Yearly)] [facility] Scheduled Test 2017-11-30 00:00:00 Colorectal Cancer Scrn Annual (FIT/FOBT) Age 50 to 75 [code = Colorectal Cancer Scrn Annual (FIT/FOBT) Age 50 to 75] [facility] Encounters Start Date/Time End Date/Time Encounter Type Admission Type Attendi [facility] Care Department Encounter ID Source 2018-11-07 10:36:14 2018-11-07 10:36:14 Outpatient [facility] [id number] [facility] 2018-04-11 00:00:00 2018-04-11 00:00:00 Outpatient [facility] [id number] [facility] 2018-03-10 00:00:00 2018-03-10 00:00:00 Outpatient [facility] [id number] [facility] 2018-02-27 00:00:00 2018-02-27 00:00:00 Outpatient [facility] [id number] [facility] 2018-02-21 00:00:00 2018-02-21 00:00:00 Outpatient [facility] [id number] [facility] 2018-02-14 10:42:46 2018-02-14 10:42:46 Outpatient [facility] [id number] [facility] 2018-01-31 09:51:06 2018-01-31 09:51:06 Outpatient [facility] [id number] [facility] 2018-01-17 00:00:00 2018-01-17 00:00:00 Outpatient [facility] [id number] [facility] 2017-12-20 09:56:58 2017-12-20 09:56:58 Outpatient [facility] [id number] [facility] 2017-12-06 00:00:00 2017-12-06 00:00:00 Outpatient [facility] [id number] [facility] 2017-12-02 00:00:00 2017-12-02 00:00:00 Outpatient [facility] [id number] [facility] 2017-12-02 00:00:00 2017-12-02 00:00:00 Outpatient [facility] [id number] [facility] 2017-12-02 00:00:00 2017-12-02 00:00:00 Outpatient [facility] [id number] [facility] 2017-12-01 00:00:00 2017-12-01 00:00:00 Outpatient [facility] [id number] [facility] 2017-12-01 00:00:00 2017-12-01 00:00:00 Outpatient [facility] [id number] [facility] 2017-11-24 00:00:00 2017-11-24 00:00:00 Outpatient [facility] [id number] [facility] 2017-11-18 00:00:00 2017-11-18 00:00:00 Outpatient [facility] [id number] [facility] 2017-11-15 09:58:33 2017-11-15 09:58:33 Outpatient [facility] [id number] [facility] 2017-11-04 00:00:00 2017-11-04 00:00:00 Outpatient [facility] [id number] [facility] 2017-10-11 09:05:02 2017-10-11 09:05:02 Outpatient [facility] [id number] [facility] 2017-09-06 14:03:29 2017-09-06 14:03:29 Outpatient [facility] [id number] [facility] 2017-08-29 11:18:50 2017-08-29 11:18:50 Outpatient [facility] [id number] [facility] 2017-08-25 15:02:04 2017-08-25 15:02:04 Outpatient [facility] [id number] [facility] 2017-05-19 07:52:20 2017-05-19 07:52:20 Outpatient [facility] [id number] [facility] 2017-05-19 00:00:00 2017-05-19 00:00:00 Outpatient [facility] [id number] [facility] 2017-05-13 00:00:00 2017-05-13 00:00:00 Outpatient [facility] [id number] [facility] 2017-04-28 12:57:57 2017-04-28 12:57:57 Outpatient [facility] [id number] [facility] 2017-04-27 10:37:24 2017-04-27 10:37:24 Outpatient [facility] [id number] [facility] 2017-04-20 08:38:35 2017-04-20 08:38:35 Outpatient [facility] [id number] [facility] 2017-04-14 15:08:02 2017-04-14 15:08:02 Outpatient [facility] [id number] [facility] 2017-04-11 00:00:00 2017-04-11 00:00:00 Outpatient [facility] [id number] [facility] 2017-04-08 16:05:35 2017-04-08 16:05:35 Outpatient [facility] [id number] [facility] 2017-04-06 08:09:57 2017-04-06 08:09:57 Outpatient [facility] [id number] [facility] 2017-04-04 14:16:41 2017-04-04 14:16:41 Outpatient [facility] [id number] [facility] 2017-04-04 13:41:41 2017-04-04 13:41:41 Outpatient [facility] [id number] [facility] 2017-04-04 00:00:00 2017-04-04 00:00:00 Outpatient [facility] [id number] [facility] 2017-03-24 14:46:30 2017-03-24 14:46:30 Outpatient [facility] [id number] [facility] 2017-03-09 00:00:00 2017-03-09 00:00:00 Outpatient [facility] [id number] [facility] 2017-03-04 08:10:56 2017-03-04 08:10:56 Outpatient [facility] [id number] [facility] 2017-01-21 11:30:12 2017-01-21 11:30:12 Outpatient [facility] [id number] [facility] 2017-01-03 10:47:30 2017-01-03 10:47:30 Outpatient [facility] [id number] [facility] 2016-12-22 00:00:00 2016-12-22 00:00:00 Outpatient [facility] [id number] [facility] 2016-12-20 00:00:00 2016-12-20 00:00:00 Outpatient [facility] [id number] [facility] 2016-11-30 16:41:07 2016-11-30 16:41:07 Outpatient [facility] [id number] [facility] 2016-11-30 10:39:01 2016-11-30 10:39:01 Outpatient [facility] [id number] [facility] 2016-11-30 00:00:00 2016-11-30 00:00:00 Outpatient [facility] [id number] [facility] 2016-11-29 08:15:21 2016-11-29 08:15:21 Outpatient [facility] [id number] [facility] 2016-10-11 00:00:00 2016-10-11 00:00:00 Outpatient [facility] [id number] [facility] 2016-08-24 13:07:04 2016-08-24 13:07:04 Outpatient [facility] [id number] [facility] 2016-08-19 08:19:08 2016-08-19 08:19:08 Outpatient [facility] [id number] [facility] 2016-08-18 15:30:30 2016-08-18 15:30:30 Outpatient [facility] [id number] [facility] 2016-07-22 13:20:48 2016-07-22 13:20:48 Outpatient [facility] [id number] [facility] 2016-07-13 14:34:57 2016-07-13 14:34:57 Outpatient [facility] [id number] [facility] 2016-06-09 15:07:42 2016-06-09 15:07:42 Outpatient [facility] [id number] [facility] 2016-06-03 08:14:20 2016-06-03 08:14:20 Outpatient [facility] [id number] [facility] 2016-05-04 09:34:48 2016-05-04 09:34:48 Outpatient [facility] [id number] [facility] 2016-05-04 09:27:03 2016-05-04 09:27:03 Outpatient [facility] [id number] [facility] 2016-05-04 08:09:59 2016-05-04 08:09:59 Outpatient [facility] [id number] [facility] 2015-12-23 11:36:59 2015-12-23 11:36:59 Outpatient [facility] [id number] [facility] 2015-12-22 18:47:43 2015-12-22 18:47:43 Emergency [facility] [id number] [facility] 2015-12-22 17:53:14 2015-12-22 17:53:14 Outpatient [facility] [id number] [facility] Results Test Description Test Time Test Comments Results Result Comments Source CT CHEST W 2019-09-27 21:08:00 [facility] [address] [address] Patient Name: PAPA LAFLEUR MR #: [id number] : 1960 Age/Sex: 59/F Req #: [id number] Adm Physician: Ordered by: DK FREY MD Report #: [id number] Location: ER Room/Bed: Procedure: [id number] CT/CT CHEST W Exam Date: 09/27/19 Exam Time: 2019 REPORT STATUS: Signed CT chest pulmonary embolism protocol CPT code: 43621 INDICATION: Shortness of breath pe protocol [id number] 2019 Y TECHNIQUE: Thin collimation axial images obtained through the level of the pulmonary arteries with additional imaging through the chest following the uneventful administration of 100 cc of low osmolar, nonionic intravenous contrast. Images reconstructed into coronal and sagittal MIPs for complete evaluation of the tortuous and overlapping pulmonary vascular structures and to reduce patient radiation dose. RADIATION DOSE: Total DLP: 595.79 mGy*cm Estimated effective dose: (DLP x 0.015 x size factor) mSv CTDIvol has been reviewed. It is below the limits set by the Radiation Protocol Committee (RPC). Dose reduction techniques used: Automated exposure control, adjustment of the mAs and/or kVp according to patient size, standardized low-dose protocol, and/or iterative reconstruction technique. COMPARISON: Chest x-ray 1925 hours. FINDINGS: Pulmonary artery: Small central, nonocclusive and branching filling defect in the upper lobe branch of the left pulmonary artery on axial images has no correlate in the other orthogonal planes and may represent volume averaging. No filling defects in the right pulmonary artery or pulmonary trunk. Main pulmonary artery measures 2.8 cm Aorta: The thoracic aorta is not aneurysmal. No evidence for dissection. Lymph nodes: No enlarged axillary, supraclavicular, mediastinal, or hilar lymph nodes. Thyroid: Visualized portions are normal. Mediastinum: The heart is enlarged with a small circumferential pericardial effusion. The esophagus is collapsed. Lungs/Pleura: Right Lung: Small posterior layering pleural effusion with associated atelectasis of the upper and lower lobes. Small focus of ground left attenuation in the inferior middle lobe may represent contusion Left Lung: Posterior layering pleural effusion measures 4 cm with near complete atelectasis of the lower lobe. Small amount of fluid in the posterolateral upper chest. Airways: Mild tracheobronchomalacia. Abdomen: No evidence of contusion or laceration. No mass or lymphadenopathy. Bones/Soft tissues: Multiple acute bilateral rib fractures. Pedicle screws and vertical stabilizing bars from T9-T12. No hardware failure. No compression fractures. Multiple skin edmundo in the posterior chest at the level of the fusion hardware. Subcutaneous emphysema in the right chest. Two soft tissue nodules in the right anterior abdominal wall measure 2.3 x 3.9 cm and 1.6 x 1.8 cm. IMPRESSION: 1. A nonocclusive branching filling defect potentially in the upper lobe branch of the left pulmonary artery appears to represent volume averaging in the other orthogonal planes. No findings to suggest pulmonary embolus elsewhere. 2. Multiple bilateral rib fractures, bilateral pleural effusions (left larger than right) and bilateral atelectasis. There is suggestion of a contusion in the right middle lobe. No pneumothorax. 3. Cardiomegaly and small pericardial effusion. 4. Subcutaneous emphysema in the right chest. Soft tissue nodules in the anterior right abdominal wall may be due to injections. 5. Postoperative changes of the spine without associated fracture or hardware failure. Signed by: Dr. Gumaro Loo MD on 09/27/2019 10:35 PM Dictated By: GUMARO LOO MD 34 Transcribed By: AUGUSTO on 09/27/192234 COPY TO: DK FREY MD CHEST SINGLE (PORTABLE) 2019-09-27 19:41:00 [facility] [address] [address] Patient Name: PAPA LAFLEUR MR #: [id number] : 1960 Age/Sex: 59/F Req #: [id number] Adm Physician: Ordered by: DK FREY MD Report #: [id number] Location: ER Room/Bed: Procedure: [id number] DX/CHEST SINGLE (PORTABLE) Exam Date: 09/27/19 Exam Time: 1914 REPORT STATUS: Signed EXAMINATION: CHEST SINGLE (PORTABLE) INDICATION: Chest pain shortness of breath. COMPARISON: None FINDINGS: TUBES and LINES: None. LUNGS: Lungs are moderately inflated. There is mild prominence of the central pulmonary vascu lature, consistent with pulmonary venous congestion. PLEURA: Bilateral small pleural effusions. No pneumothorax. HEART AND MEDIASTINUM: Cardiac size is mildly to moderately enlarged. BONES AND SOFT TISSUES: No acute osseous lesion. Mid to lower thoracic fusion with transpedicular screws system. UPPER ABDOMEN: No free air under the diaphragm. IMPRESSION: Bilateral pulmonary venous congestion. Bilateral small pleural effusions. Signed by: Dr. Will Rico M.D. on 09/27/2019 7:43 PM Dictated By: CECILLE RICO MD, MD 42 Transcribed By: AUGUSTO on 09/27/191942 COPY TO: DK FREY MD SCR MAMM BILATERAL JIM CAD DIGITAL 2019-05-25 09:18:21 - SCR MAMM BILATERAL JIM CAD DIGITALBILATERAL DIGITAL SCREENING MAMMOGRAM 3D/2D WITH CAD: 05/24/2019CLINICAL: Asymptomatic. Digital breast tomosynthesis was performed in addition to routine CC and MLO views. Current mammographic images were evaluated by either a LIA M-Vu or a Site Tour ImageChecker CAD (computer aided detection system). Comparison is made to exams dated 01/28/2018 mammogram - [facility]-, 01/03/2017 mammogram, and 12/10/2015 mammogram - [facility]. There are scattered fibroglandular tissues in both breasts. There are benign calcifications in both breasts. No suspicious mass, architectural distortion, malignant type calcification, or lymph node abnormality detected. Breast architecture is stable compared to prior exams.IMPRESSION: BENIGNThere is no mammographic evidence of malignancy. Resume annual screening mammography in one year. Celestine Chacon M.D. ss/penrad:05/25/2019 09:18:21 Rfid Strategist: Josselyn Osborn , [facility] sent: BIRADS 1-2 Normal Mammogram BI-RADS: 2 Benign - CT CHEST W/O CONTRAST 2018-10-07 08:08:00 Na me: PAPA LALFEUR [facility] : 1960 Age/S: 58 / F [address] [facility] Unit #: [id number] Loc: [place] [address] Phys: Shelia Berry MD Acct: [id number] Dis Date: Status: REG CLI PHONE #: [phone] Exam Date: 10/07/2018 0805 FAX #: [phone] Reason: OTHER FORMS OF DYSPNEA EXAMS: CPT CODE: [id number] CT CHEST W/O CONTRAST 91257 EXAM: CT of the chest without contrast; [...] Sim RT(R),CT CTDI: DLP: Trnscb Date/Time: 10/07/2018 (08) [email or web address] Orig Print D/T: S: 10/07/2018 (810) PAGE 1 Signed Report Stress Test - Treadmill ONLY 2018-09-26 10:42:00 [address] [address] Patient Name : PAPA LAFLEUR MR #: [id number] : 1960 Age/Sex: 58/F Adm Physician : BRISSA VALENTIN DO Admit Date : 09/21/18 Location : [place] Room/Bed : REPORT: Myoview Stress Test DATE [...] ejection fraction of 68%. DO PHAN Watt/CHAN /[id number] Signature Date Dictated By: BRISSA VALENTIN DO Transcribed By: CHAN on 09/26/18 <Electronically signed by BRISSA VALENTIN DO><<Signature on File>>10/13/18 1523 COPY TO:
[2019-09-28] VITALS (8 sets, daily range): BP systolic 122–136; BP diastolic 62–74
[2019-09-28 01:06] LABS: BILIRUBIN,URINE NEGATIVE (NEGATIVE); CLARITY,URINE CLEAR (CLEAR); COLOR,URINE YELLOW (YELLOW); KETONES,URINE NEGATIVE (NEGATIVE); LEUKOCYTE ESTERASE ,URINE NEGATIVE (NEGATIVE); NITRITE,URINE NEGATIVE (NEGATIVE); PROTEIN,URINE DIPSTICK NEGATIVE (NEGATIVE); URINE UROBILINOGEN 0.2 mg/dL (0.2 - 1)
[2019-09-28 01:28] LABS: BACTERIA,URINE FEW /HPF; EPITHELIAL CELLS,URINE FEW /LPF; RBC,URINE 0-5 /HPF (0-5); WBC,URINE (MAN) 0-5 /HPF (0-5)
--- NOTE | 2019-09-28 01:41 | NUR ---
DR. PHAN NOTIFIED OF PTS V/S/S, SOB, COUGH; RAPID COVID NOT NEEDED AT THIS TIME. PT TRANSFERRED TO FLOOR WITH NAD NOTED
[2019-09-28] MEDS: ONDANSETRON HCL INJ 2MG/ML 2ML 2 MG/ML VIAL IV PRN ×2 (03:00→06:19)
[2019-09-28] MEDS: FAMOTIDINE 20 MG/2 ML VIAL IV SCH ×3 (03:00→23:15)
[2019-09-28] MEDS: MORPHINE SULFATE 2 MG/ML SYR 1ML IV PRN ×5 (03:10→21:50)
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
[2019-09-28] MEDS ORDERED: LYRICA75 MG PO (04:25)
[2019-09-28] MEDS ORDERED: MONTELUKAST SOD10 MG PO (04:25)
[2019-09-28] MEDS ORDERED: METFORMIN HCL500 MG PO (04:25)
[2019-09-28] MEDS ORDERED: LOSARTAN POTAS100 MG PO (04:25)
[2019-09-28] MEDS ORDERED: ATORVASTATIN CA10 MG PO (04:25)
[2019-09-28] MEDS ORDERED: ATORVASTATIN CA20 MG PO (04:25)
[2019-09-28] MEDS ORDERED: SYNTHROID50 MCG PO (04:25)
--- NOTE | 2019-09-28 05:28 | NUR ---
PT RESTING .CALL LIGHT WITH IN REACH ,CONTINUE TO MONITOR
[2019-09-28] MEDS ORDERED: PROAIR HFA INH8.5 GM (05:41)
[2019-09-28] MEDS ORDERED: ADVAIR 250-501 EACH (05:41)
--- NOTE | 2019-09-28 07:10 | NUR ---
BEDSIDE REPORT GIVEN TO THE ONCOMING NURSE
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
[2019-09-28] MEDS ORDERED: PREGABALIN 75 MG CAP PO SCH (09:00)
--- NOTE | 2019-09-28 09:00 | NUR ---
The pt.'s hgb is 6.9 down from 7.0. A message was sent to for orders.
[2019-09-28] MEDS: LOSARTAN POTASSIUM 100 MG TAB PO SCH (09:23)
[2019-09-28] MEDS: MONTELUKAST SODIUM 10 MG TAB PO SCH (09:24)
[2019-09-28 09:26] LABS: BASOPHILS # (AUTO) 0.1 (0.0-0.1); BASOPHILS % 0.5 % (0.0-1.0); EOSINOPHILS # (AUTO) 0.5 (0.0-0.4); EOSINOPHILS % 3.8 % (0.0-6.0); HEMATOCRIT 23.7 % (34.2-44.1); LYMPHOCYTES # (AUTO) 1.9 (1.0-3.2); LYMPHOCYTES % 15.5 % (18.0-39.1); MEAN CORPUSCULAR HEMOGLOBIN 27.9 pg (28-32); MEAN CORPUSCULAR HGB CONC 29.1 g/dL (31-35); MONOCYTES # (AUTO) 0.8 (0.2-0.8); MONOCYTES % 6.3 % (4.4-11.3); NEUTROPHILS # (AUTO) 8.6 (2.1-6.9); NEUTROPHILS % 71.7 % (38.7-80.0); PLATELET COUNT 457 x10e3/uL (140-360); RED BLOOD COUNT 2.47 x10e6/uL (3.6-5.1); RED CELL DISTRIBUTION WIDTH 17.3 % (11.7-14.4)
[2019-09-28 09:48] LABS: HEMOGLOBIN 6.9 g/dL (12.0-16.0)
[2019-09-28 09:57] LABS: ALANINE AMINOTRANSFERASE 21 IU/L (0-55); ALBUMIN 2.2 g/dL (3.5-5.0); ALBUMIN/GLOBULIN RATIO 0.5 (0.8-2.0); ALKALINE PHOSPHATASE 100 IU/L (40-150); ANION GAP 14.3 mmol/L (8-16); BLOOD UREA NITROGEN 10 mg/dL (7-26); BUN/CREATININE RATIO 14 (6-25); CALCIUM 8.7 mg/dL (8.4-10.2); CARBON DIOXIDE 24 mmol/L (22-29); CHLORIDE 105 mmol/L (98-107); CHOL/HDL RATIO 3.4 (3.0-3.6); CHOLESTEROL 116 MD/DL (0-199); CREATINE KINASE 75 IU/L (29-168); CREATININE, SERUM 0.69 mg/dL (0.57-1.11); EST GLOMERULAR FILTRATION RATE > 60 ML/MIN (60-); GLUCOSE 122 mg/dL (74-118); HDL CHOLESTEROL 34 MG/DL (40-60); LDL CHOLESTEROL 58 MG/DL (60-130); POTASSIUM 4.3 mmol/L (3.5-5.1); SODIUM 139 mmol/L (136-145); TRIGLYCERIDES 119 MG/DL (0-149)
[2019-09-28] MEDS: GABAPENTIN 100 MG CAP PO SCH ×3 (10:15→21:00)
[2019-09-28] MEDS: CYCLOBENZAPRINE HCL 10 MG TAB PO SCH ×3 (10:26→22:00)
[2019-09-28 12:31] LABS: HYPOCHROMASIA SLIGHT; RBC MORPHOLOGY COMMENT ABNORMAL
--- NOTE | 2019-09-28 13:30 | NUR ---
Lab here to draw blood for transfusion.
[2019-09-28] MEDS ORDERED: SODIUM CHLORIDE 0.9% 250ML 250 ML IV ONE (13:45)
--- NOTE | 2019-09-28 16:10 | NUR ---
The pt. called for removal of scd stating they are too tight. Addendum: 09/28/19 at 1611 by Jessie Naranjo RN Amended: Links added.
[2019-09-28 16:15] LABS: CREATINE KINASE MB 0.8 ng/mL (0-5.0)
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
[2019-09-28] MEDS ORDERED: SODIUM CHLORIDE 0.9% 250ML 250 ML ONE ×2 (17:26→21:33)
--- NOTE | 2019-09-28 18:28 | NUR ---
The blood bank called to report that the pt's blood is ready.
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
[2019-09-28] MEDS ORDERED: ATORVASTATIN 20 MG TAB PO SCH (21:00)
[2019-09-28] MEDS: ATORVASTATIN 40 MG TAB PO SCH (21:00)
[2019-09-29] VITALS (8 sets, daily range): BP systolic 127–149; BP diastolic 65–84
[2019-09-29] MEDS: MORPHINE SULFATE 2 MG/ML SYR 1ML IV PRN (01:02)
[2019-09-29] MEDS: CYCLOBENZAPRINE HCL 10 MG TAB PO SCH ×3 (06:00→21:41)
[2019-09-29] MEDS: LEVOTHYROXINE SODIUM 25 MCG TABLET PO SCH (06:30)
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
[2019-09-29] MEDS: TRAMADOL HCL 50 MG TAB PO SCH ×3 (08:48→18:05)
[2019-09-29] MEDS: DULOXETINE HCL 30 MG DELAYED RELEASE PO SCH ×3 (08:48→21:08)
[2019-09-29] MEDS: PREGABALIN 50 MG CAP PO SCH ×2 (08:49→18:04)
[2019-09-29] MEDS: LOSARTAN POTASSIUM 100 MG TAB PO SCH (08:49)
[2019-09-29] MEDS: GABAPENTIN 300 MG CAP PO SCH ×3 (08:50→21:08)
[2019-09-29] MEDS: MONTELUKAST SODIUM 10 MG TAB PO SCH (08:50)
[2019-09-29] MEDS: ALBUTEROL/IPRATROPIUM 3 ML NEB NEB PRN ×4 (09:15→19:23)
[2019-09-29] MEDS ORDERED: SODIUM CHLORIDE 0.9% 250ML 250 ML ONE (10:43)
[2019-09-29] MEDS: ACETAMINOPHEN/CODEINE 300MG - 30MG TAB PO PRN ×3 (11:10→21:42)
[2019-09-29] MEDS: FAMOTIDINE 20 MG/2 ML VIAL IV SCH ×2 (11:15→23:32)
[2019-09-29 15:17] LABS: HEMATOCRIT 30.9 % (34.2-44.1); HEMOGLOBIN 9.3 g/dL (12.0-16.0)
--- NOTE | 2019-09-29 19:00 | NUR ---
RECEIVED PATIENT IN BEDSIDE SHIFT REPORT. PATIENT SITTING IN CHAIR AT THIS TIME, NO DISTRESS NOTED. MILD PAIN REPORTED, BUT PATIENT STATES SHE IS MUCH MORE COMFORTABLE IN CHAIR OPPOSED TO BED. CALL LIGHT IN REACH. BED LOCKED IN LOWEST POSITION, SIDE RAILS UPX2, CALL LIGHT IN REACH.
[2019-09-29] MEDS: ATORVASTATIN 40 MG TAB PO SCH (21:08)
[2019-09-30] VITALS (8 sets, daily range): BP systolic 113–137; BP diastolic 62–85
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
[2019-09-30] MEDS: LEVOTHYROXINE SODIUM 25 MCG TABLET PO SCH (06:23)
[2019-09-30] MEDS: CYCLOBENZAPRINE HCL 10 MG TAB PO SCH ×3 (06:23→21:36)
[2019-09-30] MEDS: TRAMADOL HCL 50 MG TAB PO SCH ×6 (06:23→23:01)
[2019-09-30] MEDS: ACETAMINOPHEN/CODEINE 300MG - 30MG TAB PO PRN ×3 (06:24→23:02)
[2019-09-30] MEDS: ALBUTEROL/IPRATROPIUM 3 ML NEB NEB PRN ×3 (06:40→20:05)
--- NOTE | 2019-09-30 07:00 | NUR ---
received bedside report. pt is alert resting in bed, no s/s of distress. pt receiving breathing treatment. call light within reach and instructed pt to call RN for help
[2019-09-30] MEDS ORDERED: DOCUSATE SODIUM 100 MG CAP PO PRN (07:15)
[2019-09-30 08:18] LABS: HEMATOCRIT 32.4 % (34.2-44.1); HEMOGLOBIN 9.7 g/dL (12.0-16.0)
[2019-09-30] MEDS: LOSARTAN POTASSIUM 100 MG TAB PO SCH (08:34)
[2019-09-30] MEDS: PREGABALIN 50 MG CAP PO SCH ×2 (08:34→17:00)
[2019-09-30] MEDS: MONTELUKAST SODIUM 10 MG TAB PO SCH (08:34)
[2019-09-30] MEDS: GABAPENTIN 300 MG CAP PO SCH ×3 (08:34→21:36)
[2019-09-30] MEDS: DULOXETINE HCL 30 MG DELAYED RELEASE PO SCH ×2 (08:34→21:36)
[2019-09-30] MEDS: SENNOSIDES 8.6 MG TAB PO SCH ×2 (08:34→17:00)
[2019-09-30] MEDS ORDERED: ONDANSETRON HCL 4 MG ORAL DISINTEGRATING TAB PO PRN (12:00)
[2019-09-30] MEDS: FAMOTIDINE 20 MG/2 ML VIAL IV SCH ×2 (12:34→23:12)
--- NOTE | 2019-09-30 19:00 | NUR ---
RECEIVED PATIENT IN BEDSIDE SHIFT REPORT. PATIENT RESTING IN RECLINER AT THIS TIME. NO PAIN REPORTED. NO S&S OF DISTRESS NOTED. BED LOCKED IN LOWEST POSITION, SIDE RAILS UPX2, CALL LIGHT IN REACH.
[2019-09-30] MEDS: ATORVASTATIN 40 MG TAB PO SCH (21:36)
[2019-10-01] VITALS (9 sets, daily range): BP systolic 95–150; BP diastolic 61–75
[2019-10-01] MEDS: TRAMADOL HCL 50 MG TAB PO SCH ×3 (05:48→17:11)
[2019-10-01] MEDS: ACETAMINOPHEN/CODEINE 300MG - 30MG TAB PO PRN ×2 (05:48→20:35)
[2019-10-01] MEDS: CYCLOBENZAPRINE HCL 10 MG TAB PO SCH ×3 (05:48→22:00)
[2019-10-01] MEDS: LEVOTHYROXINE SODIUM 25 MCG TABLET PO SCH (05:48)
[2019-10-01] MEDS: ALBUTEROL/IPRATROPIUM 3 ML NEB NEB PRN ×4 (07:52→22:50)
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
[2019-10-01] MEDS: LOSARTAN POTASSIUM 100 MG TAB PO SCH (10:12)
[2019-10-01] MEDS: DULOXETINE HCL 30 MG DELAYED RELEASE PO SCH ×2 (10:13→20:35)
[2019-10-01] MEDS: FAMOTIDINE 20 MG/2 ML VIAL IV SCH ×2 (10:13→23:15)
[2019-10-01] MEDS: MONTELUKAST SODIUM 10 MG TAB PO SCH (10:13)
[2019-10-01] MEDS: SENNOSIDES 8.6 MG TAB PO SCH ×2 (10:13→17:11)
[2019-10-01] MEDS: PREGABALIN 50 MG CAP PO SCH ×2 (10:13→17:11)
--- NOTE | 2019-10-01 12:14 | NUR ---
SPOKE WITH PT DAUGHTER AND SHE SIGNED CHOICE FOR [facility] IN [place]. FILED IN CHART, COMPLETED PASRR, RTF AND PUT ALL INFORMATION AT THE NURSES STATION
[2019-10-01] MEDS: GABAPENTIN 400 MG CAP PO SCH ×2 (14:10→20:35)
--- NOTE | 2019-10-01 19:15 | NUR ---
patient received awake, alert, sitting in chair. no c/o pain noted. pm assessment complete. patient instructed to call for assistance when needed.
[2019-10-01] MEDS: ATORVASTATIN 40 MG TAB PO SCH (20:35)
[2019-10-02] VITALS (8 sets, daily range): BP systolic 110–149; BP diastolic 62–83
[2019-10-02] MEDS: CYCLOBENZAPRINE HCL 10 MG TAB PO SCH ×3 (05:36→21:13)
[2019-10-02] MEDS: LEVOTHYROXINE SODIUM 25 MCG TABLET PO SCH (05:37)
[2019-10-02] MEDS: TRAMADOL HCL 50 MG TAB PO SCH ×5 (05:37→23:07)
[2019-10-02 06:16] LABS: BASOPHILS % 0.4 % (0.0-1.0); EOSINOPHILS # (AUTO) 0.5 (0.0-0.4); EOSINOPHILS % 4.6 % (0.0-6.0); HEMATOCRIT 32.4 % (34.2-44.1); HEMOGLOBIN 9.6 g/dL (12.0-16.0); LYMPHOCYTES # (AUTO) 1.4 (1.0-3.2); LYMPHOCYTES % 13.9 % (18.0-39.1); MEAN CORPUSCULAR HEMOGLOBIN 28.4 pg (28-32); MEAN CORPUSCULAR HGB CONC 29.6 g/dL (31-35); MEAN CORPUSCULAR VOLUME 95.9 fL (81-99); MONOCYTES # (AUTO) 0.8 (0.2-0.8); MONOCYTES % 7.9 % (4.4-11.3); NEUTROPHILS # (AUTO) 7.2 (2.1-6.9); NEUTROPHILS % 72.7 % (38.7-80.0); PLATELET COUNT 280 x10e3/uL (140-360); RED BLOOD COUNT 3.38 x10e6/uL (3.6-5.1); RED CELL DISTRIBUTION WIDTH 15.8 % (11.7-14.4)
[2019-10-02 06:41] LABS: ANION GAP 15.2 mmol/L (8-16); BLOOD UREA NITROGEN 15 mg/dL (7-26); BUN/CREATININE RATIO 23 (6-25); CALCIUM 8.5 mg/dL (8.4-10.2); CARBON DIOXIDE 23 mmol/L (22-29); CHLORIDE 104 mmol/L (98-107); CREATININE, SERUM 0.66 mg/dL (0.57-1.11); EST GLOMERULAR FILTRATION RATE > 60 ML/MIN (60-); GLUCOSE 99 mg/dL (74-118); POTASSIUM 4.2 mmol/L (3.5-5.1); SODIUM 138 mmol/L (136-145)
[2019-10-02] MEDS: ALBUTEROL/IPRATROPIUM 3 ML NEB NEB PRN ×4 (07:28→19:52)
[2019-10-02] MEDS: MONTELUKAST SODIUM 10 MG TAB PO SCH (10:01)
[2019-10-02] MEDS: DULOXETINE HCL 30 MG DELAYED RELEASE PO SCH ×2 (10:01→21:00)
[2019-10-02] MEDS: SENNOSIDES 8.6 MG TAB PO SCH ×2 (10:01→16:30)
[2019-10-02] MEDS: GABAPENTIN 400 MG CAP PO SCH ×3 (10:01→21:00)
[2019-10-02] MEDS: LOSARTAN POTASSIUM 100 MG TAB PO SCH (10:01)
[2019-10-02] MEDS: PREGABALIN 50 MG CAP PO SCH ×2 (10:01→16:30)
--- NOTE | 2019-10-02 10:08 | NUR ---
[facility] REFUSED PT. WILL SPEAK WITH FAMILY ABOUT REFUSAL AND GET ANOTHER CHOICE.
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
--- NOTE | 2019-10-02 10:22 | NUR ---
SPOKE WITH PT WHOM DEFERRED ME TO CALL DAUGHTER. CALLED JAYESH, SHE STATES SHE WANTS TO LOOK AT THE LIST AGAIN AND TO PLEASE GIVE HER A COUPLE OF HOURS TO SELECT ANOTHER FACILITY,
[2019-10-02] MEDS: FAMOTIDINE 20 MG/2 ML VIAL IV SCH ×2 (10:56→23:07)
--- NOTE | 2019-10-02 13:16 | NUR ---
CALLED DAUGHTER JAYESH AND ASKED IF THEY HAVE COME TO A DECISION, SHE STATES YES THEY WANT TO RETURN TO [facility], FAXING CLINICALS
--- NOTE | 2019-10-02 19:15 | NUR ---
patient received awake, alert, sitting up in chair. no c/o pain noted at this time. pm assessment complete. call dia placed within reach. patient instructed to call for assistance when needed.
[2019-10-02] MEDS: ATORVASTATIN 40 MG TAB PO SCH (21:00)
[2019-10-02] MEDS: ACETAMINOPHEN/CODEINE 300MG - 30MG TAB PO PRN (21:13)
[2019-10-03] MEDS: ALBUTEROL/IPRATROPIUM 3 ML NEB NEB PRN ×3 (00:15→13:45)
[2019-10-03 03:57] VITALS: BP 142/70
[2019-10-03] MEDS: TRAMADOL HCL 50 MG TAB PO SCH ×3 (05:23→18:00)
[2019-10-03] MEDS: CYCLOBENZAPRINE HCL 10 MG TAB PO SCH ×3 (05:23→20:15)
[2019-10-03] MEDS: LEVOTHYROXINE SODIUM 25 MCG TABLET PO SCH (05:24)
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
--- NOTE | 2019-10-03 06:15 | NUR ---
patient turned and repositioned for comfort. skin care provided. purwick remains. no c/o pain noted at this time.
[2019-10-03 06:46] LABS: BASOPHILS # (AUTO) 0.1 (0.0-0.1); BASOPHILS % 0.5 % (0.0-1.0); EOSINOPHILS # (AUTO) 0.3 (0.0-0.4); EOSINOPHILS % 2.9 % (0.0-6.0); HEMATOCRIT 31.6 % (34.2-44.1); HEMOGLOBIN 9.6 g/dL (12.0-16.0); LYMPHOCYTES # (AUTO) 1.1 (1.0-3.2); LYMPHOCYTES % 10.1 % (18.0-39.1); MEAN CORPUSCULAR HEMOGLOBIN 28.3 pg (28-32); MEAN CORPUSCULAR HGB CONC 30.4 g/dL (31-35); MEAN CORPUSCULAR VOLUME 93.2 fL (81-99); MONOCYTES # (AUTO) 0.9 (0.2-0.8); MONOCYTES % 8.7 % (4.4-11.3); NEUTROPHILS # (AUTO) 8.4 (2.1-6.9); NEUTROPHILS % 77.3 % (38.7-80.0); PLATELET COUNT 410 x10e3/uL (140-360); RED BLOOD COUNT 3.39 x10e6/uL (3.6-5.1); RED CELL DISTRIBUTION WIDTH 15.5 % (11.7-14.4)
[2019-10-03 07:08] LABS: BLOOD UREA NITROGEN 12 mg/dL (7-26); BUN/CREATININE RATIO 19 (6-25); CALCIUM 8.8 mg/dL (8.4-10.2); CARBON DIOXIDE 23 mmol/L (22-29); CHLORIDE 103 mmol/L (98-107); CREATININE, SERUM 0.64 mg/dL (0.57-1.11); EST GLOMERULAR FILTRATION RATE > 60 ML/MIN (60-); GLUCOSE 114 mg/dL (74-118); SODIUM 137 mmol/L (136-145)
[2019-10-03 08:00] VITALS: BP 173/85
[2019-10-03] MEDS: ACETAMINOPHEN/CODEINE 300MG - 30MG TAB PO PRN ×2 (08:20→18:37)
[2019-10-03] MEDS: LOSARTAN POTASSIUM 100 MG TAB PO SCH (09:00)
[2019-10-03] MEDS: GABAPENTIN 400 MG CAP PO SCH ×3 (09:00→20:15)
[2019-10-03] MEDS: MONTELUKAST SODIUM 10 MG TAB PO SCH (09:00)
[2019-10-03] MEDS: PREGABALIN 50 MG CAP PO SCH ×2 (09:00→17:00)
[2019-10-03] MEDS: DULOXETINE HCL 30 MG DELAYED RELEASE PO SCH ×2 (09:00→20:15)
[2019-10-03] MEDS: SENNOSIDES 8.6 MG TAB PO SCH ×2 (09:00→17:00)
[2019-10-03] MEDS: FAMOTIDINE 20 MG/2 ML VIAL IV SCH (11:15)
--- NOTE | 2019-10-03 11:26 | NUR ---
SPOKE WITH PT AND SIGNED IMM FILED IN CHART, SPOKE WITH SHARI AT [facility] THEY SHOUL ET BUILDING APPROVAL AND SUBMIT TO INSURANCE PENDING AUTH, Addendum: 10/03/19 at 1128 by Prudence Aj CM INCORRECT PT DIREGARD!!!! THIS PT CLINICALS WERE SENT TO [facility] ON AUTH
[2019-10-03 11:55] VITALS: BP 119/71
--- NOTE | 2019-10-03 12:13 | NUR ---
HALFWAY FACILITY DISCHARGE INFORMATION PATIENT HAS BEEN ACCEPTED TO: NAME: [facility] ADDRESS: [id number] [facility] ACCEPTING [employer] SPECIALIST SUPERVISOR: TABATHA APARICIO ACCEPTING MD: AMADO ROOM: 105 NURSE CALL REPORT TO: [phone] IMM SIGNED AND OBTAINED (if applicable): IMM THE FOLLOWING DOCUMENTS MUST ACCOMPANY PATIENT FOR TRANSFER: COPIED CHART: PACKET
[2019-10-03 17:58] VITALS: BP 125/100
--- NOTE | 2019-10-03 18:42 | NUR ---
PT UP IN CHAIR DENIES PAIN,AWAITING AMBULANCE
--- NOTE | 2019-10-03 19:00 | NUR ---
patient received awake, alert, sitting up in chair. no c/o pain noted. pm assessment complete. patient to transfer to [facility]. patient verbalizes understanding of this.
[2019-10-03 19:55] VITALS: BP 140/79
[2019-10-03 20:05] VITALS: BP 140/79
[2019-10-03] MEDS: ATORVASTATIN 40 MG TAB PO SCH (20:15)
--- NOTE | 2019-10-03 20:23 | NUR ---
patient discharged to [facility] at this time. vss. no distress noted at time of transfer.
== END 2019-10-03 20:23 | DRG 187 ==
LOC: ER 18:35 → ERHOLD 23:15 → MED/SURG3 09-28 02:38 → OBSVTOIN 09-29 11:06
PROVIDERS: ADMIT Internal Medicine; ATTEND Internal Medicine
PROC: 30233N1 Transfusion of Nonautologous Red Blood Cells into Peripheral Vein, Percutaneous Approach (ICD-10-PCS; principal; 2019-09-29)
DX: J90 Pleural effusion, not elsewhere classified (principal); Z68.43 Body mass index [BMI] 50.0-59.9, adult; I31.3 Pericardial effusion (noninflammatory); R07.9 Chest pain, unspecified; S22.43XS Multiple fractures of ribs, bilateral, sequela; D64.9 Anemia, unspecified; E03.9 Hypothyroidism, unspecified; E11.9 Type 2 diabetes mellitus without complications; I10 Essential (primary) hypertension; E78.5 Hyperlipidemia, unspecified; J45.909 Unspecified asthma, uncomplicated; E66.01 Morbid (severe) obesity due to excess calories; R07.89 Other chest pain; I51.7 Cardiomegaly; Z79.84 Long term (current) use of oral hypoglycemic drugs
CPT/HCPCS: 36415; 71045; 71260; 80048; 80053; 80061; 81001; 82550; 82553; 82607; 82728; 82948; 83036; 83880; 84484; 85014; 85018; 85025; 85379; 86850; 86900; 86920; 87635; 93005; 93306; 94640; 97139; 99251; 99284; G0378; J2270; J2405; J7050; P9016; Q9967